=== PATIENT | female | born 1965 | race Caucasian/White ===

== ENCOUNTER 2017-04-06 06:19 | Observation (INO) | payer OTHER ==
[~2017-04-06] VITALS: Ht 162.6 cm; Wt 81.2 kg
[2017-04-06 06:47] VITALS: BP 132/83
--- NOTE | 2017-04-06 16:41 | NUR ---
RECEIVED REPORT FROM DAGO RAM AT THIS TIME.
[2017-04-06 17:08] VITALS: BP 115/68
--- NOTE | 2017-04-06 17:12 | NUR ---
RECEIVED PT FROM OUTPATIENT VIA MIGUEL. VSS. BP 115/68, MAP 81, HR 68, TEMP 98.2, 02 SAT 97% RA. INSTRUCTED PT ON THE USE OF CALL LIGHT FOR ASSISTANCE. ENDORSED PT TO PRIMARY NURSE LUI
[2017-04-06 17:22] VITALS: BP 115/68
--- NOTE | 2017-04-06 18:22 | NUR ---
MEDICATED WITH ZOFRAN ORDRED PRN FOR NAUSEA AT THIS TIME. PATIENT IS GETTING 12 LEAD EKG. FAMILY AT THE BEDSIDE.
--- NOTE | 2017-04-06 19:05 | NUR ---
RECEIVED PT LAYING IN BED WITH FAMILY MEMBERS AT BEDSIDE. S/P ARTHROSCOPIC RIGHT MEDIAL MENISTECTOMY AND CHONDROPATHY. PT C/O PAIN AT THIS TIME. WILL TALK WITH DR. MADDOX FOR TELEPHONE ORDERS. PT DENIES NAUSEA AT THIS TIME STATING IT IS CURRENTLY BEING CONTRAOLLED WITH PREVIOUS DOSE OF PRN ZOFRAN. A/O X4, MAINLY BENGALI SPEAKING. TELE #6, NSR, DENIES CHEST PAIN. PULSES PRESENT, NO EDMA NOTED. BREATHING ON RA. DENIES SOB OR DYPSNEA. BREATHING EVEN AND UNLABORED. ABD IS ROUND AND SOFT WITH ACTIVE BOWEL SOUNDS. LAST BM WAS TODAY, 04/06/17. PT IS ABLE TO FREELY VOID URINE. WEAKNESS NOTED TO R BLE, PT USES CRUTCHES TO AMBULATE. DRESSING TO RIGHT KNEE IN PLACE, CDI. PT IS SALINE LOCKED TO LAC. IV SITE DRY, PATENT, AND INTACT. ROOM IS FREE OF SAFETY HAZARDS. BED IN LOWEST POSITION WITH SIDE RAILS UP X2. CALL LIGHT WITHIN REACH. WILL CONTINUE TO MONITOR
--- NOTE | 2017-04-06 20:33 | NUR ---
PT C/O PAIN IN THE RIGHT KNEE AT THIS TIME. PRN TORADOL IVP GIVEN PER EMAR. PT IN NO ACUTE DISTRESS AT THIS TIME. CALL LIGHT WITHIN REACH. WILL CONTINUE TO MONITOR
[2017-04-06 21:17] VITALS: BP 110/67
--- NOTE | 2017-04-06 22:41 | NUR ---
SPOKE WITH DR. MADDOX REGARDING RESULTS OF CT ANGIO. ORDERS TO ADVANCE DIET TO REGULAR AND PLAN TO GO AHEAD AND D/C PATIENT TOMORROW MORNING, 04/07/17. PT IN NO ACUTE DISTRESS AT THIS TIME. CALL LIGHT WITHIN REACH. WILL CONTINUE TO MONITOR
--- NOTE | 2017-04-07 04:21 | NUR ---
PT IS LAYING IN BED WITH EYES CLOSED, ASLEEP AT THIS TIME. NO ACUTE DISTRESS NOTED. COMFORT MEASURES IN PLACE. CALL LIGHT WITHIN REACH. WILL CONTINUE TO MONITOR
--- NOTE | 2017-04-07 04:49 | NUR ---
PT C/O PAIN IN THE BACK AND R KNEE. PRN TORADOL IV GIVEN. NO ACUTE DISTRESS NOTED. CALL LIGHT WITHIN REACH. WILL CONTINUE TO MONITOR
--- NOTE | 2017-04-07 05:05 | NUR ---
NO SIGNIFICANT CHANGES TO REPORT. PT COMPLIED WITH NURSING CARE THROUGHOUT THE SHIFT. PT CONTINUES TO FEEL A PRESSURE IN HER CHEST WHEN SHE TAKES DEEP BREATHS. NO ACUTE EVENTS OVER NIGHT. DRESSING TO R KNEE REMAINED IN PLACE, CDI AT THIS TIME. IV SITE IS DRY, PATENT, AND INTACT, SALINE LOCKED PER DOCTOR'S ORDERS. NO ACUTE DISTRESS NOTED AT THIS TIME. COMFORT MEASURES MAINTAINED AND ALL NEEDS ASSESSED. BED IN LOWEST POSITION WITH SIDE RAILS UP X2. CALL LIGHT WITHIN REACH. WILL ENDORSE TO DAY NURSE FOR CONTINUITY OF CARE.
[2017-04-07 06:38] VITALS: BP 116/74
--- NOTE | 2017-04-07 07:40 | NUR ---
RECEIVED PT IN BED, A/A/O X 4, CALM, COOPERATIVE. ON TELE # 6, NSR, HR 78, DENIES CHEST PAIN OR DISCOMFORT AT THIS TIME. WILIAN RADIAL AND PEDAL PULSES PRESENT, NO EDEMA, CAP REFILL < 3 SECS. S/P ARTHROSCOPIC R MEDIAL MENISECTOMY AND CHONDROPLASTY, SITE NO S/S INFECTION OR BLEEDING, COVERED IN DRY DRESSING, CDI, DENIES PAIN AT THIS TIME. IV SITE TO LAC CDI, SALINE LOCKED. SIDE RAILS UP X 2, BED IN LOW POSITION, CALL LIGHT WITHIN REACH. WILL CONTINUE TO MONITOR.
--- NOTE | 2017-04-07 08:10 | NUR ---
DR LAYNE, RESIDENTS, CHARGE NURSE, AND ASSIGNED NURSE CAME IN TO SEE PT; DISCUSSED PLAN OF CARE FOR TODAY, INCLUDING D/C HOME. ALL QUESTIONS ANSWERED. PT VERBALIZED UNDERSTANDING.
[2017-04-07 09:06] VITALS: BP 107/67
--- NOTE | 2017-04-07 11:30 | NUR ---
PT IN BED, WATCHING TV. NO RESPIRATORY DISTRESS, PAIN, OR DISCOMFORT NOTED. WILL CONTINUE TO MONITOR.
[2017-04-07 13:40] VITALS: BP 99/59
[2017-04-07 13:45] VITALS: BP 99/59
--- NOTE | 2017-04-07 16:00 | NUR ---
PT GIVEN DISCHARGE PACKET, SON BY BEDSIDE. DISCUSSED CURRENT STAY, MEDICATIONS, PROCEDURES DONE, LAB RESULTS, FUTURE APPOINTMENT, AND TEACHINGS RE: MENISCUS TEAR. ALL QUESTIONS WERE ANSWERED. PT AND SON VERBALIZED UNDERSTANDING. ALL ID BANDS REMOVED FROM PT. TELE MONITOR REMOVED FROM PT AND RETURNED TO TELE STATION. IV REMOVED FROM LAC, CATH TIP INTACT, NO S/S INFECTION OR BLEEDING. UNABLE TO TAKE PICTURE OF R KNEE SURGERY D/T DR MADDOX'S INSTRUCTION NOT TO OPEN DRESSING UNTIL THURSDAY, WHEN HE SEES PT. PT WAS THEN TRANSPORTED TO D/C OFFICE VIA W/C, ACCOMPANIED BY GENERAL EDUCATION PROFESSOR AND SON. A/A/O X 4, CALM, COOPERATIVE, NO RESPIRATORY DISTRESS, PAIN, OR DISCOMFORT.
== END 2017-04-07 17:39 | disposition home or self-care (01) | DRG 989 ==
LOC: DS 06:19 → OR 07:30 → MU 16:55 → DU 16:55 → MU 17:19 → DU 17:34
PROVIDERS: ADMIT Neuromusculoskeletal Medicine, Sports Medicine
PROC: 0SBC4ZZ Excision of Right Knee Joint, Percutaneous Endoscopic Approach (ICD-10-PCS; principal; 2017-04-06 07:30)
DX: R07.9 Chest pain, unspecified (principal); S83.241A Other tear of medial meniscus, current injury, right knee, initial encounter; M22.41 Chondromalacia patellae, right knee; W19.XXXA Unspecified fall, initial encounter; Y92.511 Restaurant or cafe as the place of occurrence of the external cause; Y99.0 Civilian activity done for income or pay
CPT/HCPCS: 90658; 97110-GP; 97116-GP; 97530-GP; G0378; J0690; J1885; J2175; J2250; J2270; J2405; J3010; J3490; Q9967